=== PATIENT | female | born 1935 | race Caucasian/White ===

== ENCOUNTER → 2016-12-29 | Outpatient (CLI) | payer OTHER ==
[~2016-12-29] MED LIST: ASPI325T4 PO; ATEN25TA PO; CEFD300C37 PO; GLIM2TAB2 PO; LEVO75TA33 PO; LOSA1TAB18 PO; LOSA1TAB7 PO; LOVA10TA PO
== END | disposition home or self-care (01) ==
LOC: CVU 13:01
PROVIDERS: ATTEND Internal Medicine
DX: I50.32 Chronic diastolic (congestive) heart failure (principal); I35.1 Nonrheumatic aortic (valve) insufficiency; I51.7 Cardiomegaly
CPT/HCPCS: 93306

== ENCOUNTER 2017-02-12 12:54 | Inpatient (IN) | payer OTHER ==
[~2017-02-12] VITALS: Ht 170.2 cm; Wt 80.2 kg
[2017-02-12] MEDS ORDERED: SODIUM CHLORIDE 0.9% 1,000ML IVBOLUS ONE (14:00)
[2017-02-12] MEDS ORDERED: SODIUM CHLORIDE FLUSH 10ML SYR IVF ONE (14:00)
[2017-02-12 14:34] LABS: HEMATOCRIT 38.8 % (34.6-47.8); HEMOGLOBIN 12.8 g/dL (11.7-16.4); WHITE BLOOD COUNT 5.3 x10^3/uL (3.4-10)
[2017-02-12 14:43] LABS: BLOOD UREA NITROGEN 17 mg/dL (7-18)
[2017-02-12 14:50] LABS: IS PT STATUS REG ER OR PRE ER? YES
[2017-02-12 15:47] LABS: PATH.CAST-FLAG NOT PRESENT; SPERM-FLAG NOT PRESENT; SRC-FLAG NOT PRESENT; XTAL-FLAG NOT PRESENT; YLC-FLAG NOT PRESENT
[2017-02-12] MEDS ORDERED: CEFTRIAXONE PMX 1GM/50ML 50 ML IV ONE (17:00)
[2017-02-12] MEDS ORDERED: ACETAMINOPHEN 325 MG TABLET PO PRN (18:00)
[2017-02-12] MEDS ORDERED: morphine SULFATE 10 MG/ML, 1ML IVPush PRN (18:00)
[2017-02-12] MEDS ORDERED: ONDANSETRON 2MG/ML, 2ML IVPush PRN (18:00)
[2017-02-12] MEDS ORDERED: POLYETHYLENE GLYCOL 17 GM PACKET PO PRN (18:00)
[2017-02-12 20:00] VITALS: BP 126/73
[2017-02-12 20:01] VITALS: BP 126/73
[2017-02-12] MEDS ORDERED: CEFTRIAXONE PMX 1GM/50ML 50 ML ONE (20:47)
[2017-02-12] MEDS: GLIMEPIRIDE 1 MG TABLET PO SCH (22:41)
[2017-02-12] MEDS: LOVASTATIN 40 MG TABLET PO SCH (22:41)
[2017-02-12] MEDS: CEFTRIAXONE PMX 1GM/50ML 50 ML IV SCH (22:41)
[2017-02-12] MEDS: SODIUM CHLORIDE 0.9% 1,000 ML IV SCH (22:43)
[2017-02-13 01:44] VITALS: BP 131/74
[2017-02-13 06:23] LABS: HEMATOCRIT 36.5 % (34.6-47.8); HEMOGLOBIN 12.2 g/dL (11.7-16.4); WHITE BLOOD COUNT 6.2 x10^3/uL (3.4-10)
[2017-02-13 06:36] LABS: BLOOD UREA NITROGEN 20 mg/dL (7-18)
[2017-02-13 07:03] LABS: ASPARTATE AMINO TRANSFERASE 94 U/L (15-37); FERRITIN 43.5 ng/mL (8-252); TOTAL IRON BINDING CAPACITY 377 mcg/dL (250-450)
[2017-02-13 07:39] VITALS: BP 151/74
[2017-02-13] MEDS: SODIUM CHLORIDE 0.9% 1,000 ML IV SCH ×2 (09:34→20:40)
[2017-02-13] MEDS: GLIMEPIRIDE 1 MG TABLET PO SCH ×2 (09:34→20:34)
[2017-02-13] MEDS: ASPIRIN 325 MG TABLET PO SCH (09:34)
[2017-02-13] MEDS ORDERED: ERGOCALCIFEROL 50,000 UNIT CAPSULE PO SCH (10:00)
[2017-02-13] MEDS: LEVOTHYROXINE 25 MCG TABLET PO SCH (12:20)
[2017-02-13 12:57] VITALS: BP 136/79
[2017-02-13 18:41] VITALS: BP 152/81
[2017-02-13] MEDS: LOVASTATIN 40 MG TABLET PO SCH (20:34)
[2017-02-13] MEDS: CEFTRIAXONE PMX 1GM/50ML 50 ML IV SCH (22:54)
[2017-02-14 00:58] VITALS: BP 167/78
[2017-02-14] MEDS: hydrALAzine 20 MG/ML, 1ML IVPush PRN (02:03)
[2017-02-14 02:20] VITALS: BP 137/70
[2017-02-14] MEDS: LEVOTHYROXINE 25 MCG TABLET PO SCH (05:35)
[2017-02-14] MEDS: HYDROcodone/APAP 5/325 TABLET PO PRN ×2 (05:44→21:39)
[2017-02-14 05:59] LABS: BLOOD UREA NITROGEN 17 mg/dL (7-18)
[2017-02-14] MEDS ORDERED: LEVOTHYROXINE 25 MCG TABLET PO SCH (06:00)
[2017-02-14 08:15] VITALS: BP 128/71
[2017-02-14] MEDS: SODIUM CHLORIDE 0.9% 1,000 ML IV SCH ×2 (10:28→19:00)
[2017-02-14] MEDS: GLIMEPIRIDE 1 MG TABLET PO SCH ×2 (10:29→21:41)
[2017-02-14] MEDS: ASPIRIN 325 MG TABLET PO SCH (10:29)
[2017-02-14] MEDS ORDERED: ERGO500017 PO (11:06)
[2017-02-14] MEDS ORDERED: CEFD300C37 PO (11:06)
[2017-02-14] MEDS ORDERED: LEVO25TA2 PO (11:06)
[2017-02-14] MEDS ORDERED: FERR325T20 PO (11:18)
[2017-02-14] MEDS: POTASSIUM CHLORIDE 20 MEQ TAB.ER.PRT PO SCH ×2 (13:50→15:56)
[2017-02-14 15:45] VITALS: BP 149/66
[2017-02-14] MEDS ORDERED: PRIM50TA PO (17:47)
[2017-02-14 18:48] VITALS: BP 172/80
[2017-02-14 18:58] LABS: HEP B SURF. AB < 3.1 mIU/mL (0.0-10.0)
[2017-02-14 19:37] LABS: HEPATITIS A ANTIBODY TOTAL Reactive (Nonreactive)
[2017-02-14] MEDS ORDERED: POLYETHYLENE GLYCOL 17 GM PACKET PO PRN (20:00)
[2017-02-14] MEDS ORDERED: ONDANSETRON 2MG/ML, 2ML IVPush PRN (20:00)
[2017-02-14] MEDS ORDERED: morphine SULFATE 10 MG/ML, 1ML IVPush PRN (20:00)
[2017-02-14] MEDS ORDERED: PRIMIDONE 50 MG TABLET PO SCH (21:00)
[2017-02-14] MEDS: CEFTRIAXONE PMX 1GM/50ML 50 ML IV SCH (21:41)
[2017-02-14] MEDS: LOVASTATIN 40 MG TABLET PO SCH (21:42)
[2017-02-15 02:49] VITALS: BP 138/70
[2017-02-15] MEDS: LEVOTHYROXINE 25 MCG TABLET PO SCH (06:14)
[2017-02-15] MEDS: SODIUM CHLORIDE 0.9% 1,000 ML IV SCH (08:18)
[2017-02-15 08:19] VITALS: BP 179/76
[2017-02-15] MEDS: GLIMEPIRIDE 1 MG TABLET PO SCH (09:10)
[2017-02-15] MEDS: ASPIRIN 325 MG TABLET PO SCH (09:10)
[2017-02-15] MEDS: hydrALAzine 20 MG/ML, 1ML IVPush PRN (09:11)
== END 2017-02-15 13:30 | disposition home or self-care (01) | DRG 871 ==
LOC: ED 16:59 → EDIP 17:04 → SUATTDRO 17:38 → 4WST 19:36
PROVIDERS: ADMIT Internal Medicine; ATTEND Internal Medicine
DX: A41.9 Sepsis, unspecified organism (principal); G93.40 Encephalopathy, unspecified; N17.0 Acute kidney failure with tubular necrosis; M62.82 Rhabdomyolysis; B96.1 Klebsiella pneumoniae [K. pneumoniae] as the cause of diseases classified elsewhere; B96.20 Unspecified Escherichia coli [E. coli] as the cause of diseases classified elsewhere; D50.9 Iron deficiency anemia, unspecified; E03.9 Hypothyroidism, unspecified; E11.649 Type 2 diabetes mellitus with hypoglycemia without coma; E11.65 Type 2 diabetes mellitus with hyperglycemia; E55.9 Vitamin D deficiency, unspecified; E78.5 Hyperlipidemia, unspecified; F02.80 Dementia in other diseases classified elsewhere, unspecified severity, without behavioral disturbance, psychotic disturbance, mood disturbance, and anxiety; G25.0 Essential tremor; G31.83 Neurocognitive disorder with Lewy bodies; I11.0 Hypertensive heart disease with heart failure; I25.10 Atherosclerotic heart disease of native coronary artery without angina pectoris; I50.9 Heart failure, unspecified; K75.9 Inflammatory liver disease, unspecified; N30.90 Cystitis, unspecified without hematuria; W06.XXXA Fall from bed, initial encounter; Y93.89 Activity, other specified; Y92.89 Other specified places as the place of occurrence of the external cause; Z88.0 Allergy status to penicillin; Z79.4 Long term (current) use of insulin; Z90.49 Acquired absence of other specified parts of digestive tract; Z88.8 Allergy status to other drugs, medicaments and biological substances
CPT/HCPCS: 36415; 71010; 80048; 80053; 80061; 81001; 82040; 82306; 82550; 82553; 82607; 82728; 82746; 82962; 83036; 83540; 83550; 83605; 83735; 83970; 84100; 84132; 84443; 84484; 85025; 86705; 86706; 86708; 86803; 87040; 87077; 87086; 87186; 87340; 93005; J0696; J0360; J7030

== ENCOUNTER 2017-03-21 18:41 | Emergency (ER) | payer OTHER ==
[~2017-03-21] VITALS: Ht 165.1 cm; Wt 80.6 kg
[~2017-03-21 18:41] MED LIST changes: +ASPI325T17 PO; -ASPI325T4 PO; +ERGO500017 PO; +FERR325T18 PO; +LEVO25TA2 PO; -LEVO75TA33 PO; +LEVO75TA59 PO; +PRIM50TA PO
[2017-03-21] MEDS ORDERED: ERTAPENEM 1 GM in SODIUM CHLORIDE 0.9% 50 ML IV ONE (21:00)
[2017-03-21] MEDS ORDERED: VANCOMYCIN PMX 1GM/200ML 200 ML IV ONE (21:00)
[2017-03-21] MEDS ORDERED: SODIUM CHLORIDE FLUSH 10ML SYR IVF ONE (21:00)
[2017-03-22 00:16] VITALS: BP 124/75
== END 2017-03-22 00:49 | disposition home or self-care (01) ==
LOC: ED 23:50
DX: E11.621 Type 2 diabetes mellitus with foot ulcer (principal); I11.9 Hypertensive heart disease without heart failure; I51.9 Heart disease, unspecified
CPT/HCPCS: 87070; 87205; 96365; 96366; 96367; 99285; J1335; J3370

== ENCOUNTER 2017-04-28 17:57 | Inpatient (IN) | payer OTHER ==
[~2017-04-28] VITALS: Ht 167.6 cm; Wt 79.8 kg
[~2017-04-28 17:57] MED LIST changes: -LOSA1TAB18 PO; +LOSA1TAB25 PO
[2017-04-28 20:45] VITALS: BP 150/67
[2017-04-28] MEDS ORDERED: ONDANSETRON 2MG/ML, 2ML IVPush PRN (21:00)
[2017-04-28] MEDS ORDERED: DEXTROSE 4 GM TAB.CHEW PO PRN (21:00)
[2017-04-28] MEDS ORDERED: hydrALAzine 20 MG/ML, 1ML IVPush PRN (21:00)
[2017-04-28] MEDS ORDERED: LORazepam 2 MG/ML, 1ML IVPush PRN (21:00)
[2017-04-28] MEDS ORDERED: INSULIN ASPART 100 UNITS/ML, PEN SQ-INSULIN SCH (21:00)
[2017-04-28] MEDS ORDERED: GLUCAGON 1 MG IM PRN (21:00)
[2017-04-28] MEDS ORDERED: GLIMEPIRIDE 1 MG TABLET PO SCH (21:00)
[2017-04-28] MEDS ORDERED: DEXTROSE 50%, 50ML SYRINGE IVPush PRN (21:00)
[2017-04-28] MEDS ORDERED: HYDROmorphone 2 MG/ML, 1ML IVPush PRN (21:00)
[2017-04-28] MEDS ORDERED: ERGOCALCIFEROL 50,000 UNIT CAPSULE PO SCH (21:19)
[2017-04-28] MEDS ORDERED: PLEASE ENTER HEIGHT AND WEIGHT MC SCH (21:30)
[2017-04-28 22:00] VITALS: BP 150/65
[2017-04-28] MEDS: INSULIN ASPART 100 UNITS/ML, PEN SQ-INSULIN SCH (22:32)
[2017-04-28] MEDS: FERROUS SULFATE 325 MG TABLET PO SCH (22:32)
[2017-04-28] MEDS: ENOXAPARIN 40 MG/0.4 ML SQ SCH (22:32)
[2017-04-28] MEDS: SODIUM CHLORIDE FLUSH 10ML SYR IVF SCH ×2 (22:35→22:36)
[2017-04-29 01:25] VITALS: BP 123/58
[2017-04-29] MEDS: LEVOTHYROXINE 25 MCG TABLET PO SCH (05:52)
[2017-04-29 06:52] VITALS: BP 122/69
[2017-04-29] MEDS: INSULIN ASPART 100 UNITS/ML, PEN SQ-INSULIN SCH ×7 (08:22→20:43)
[2017-04-29] MEDS: HYDROCHLOROTHIAZIDE 12.5 MG CAPSULE PO SCH (09:01)
[2017-04-29] MEDS: PANTOPRAZOLE 40 MG IV IVPush SCH (09:01)
[2017-04-29] MEDS: ASPIRIN 325 MG TABLET PO SCH (09:02)
[2017-04-29] MEDS: FERROUS SULFATE 325 MG TABLET PO SCH ×2 (09:02→20:40)
[2017-04-29] MEDS: LOSARTAN 50MG TABLET PO SCH (09:02)
[2017-04-29] MEDS: GLIMEPIRIDE 1 MG TABLET PO SCH ×2 (09:02→17:26)
[2017-04-29] MEDS: PRIMIDONE 50 MG TABLET PO SCH (09:03)
[2017-04-29] MEDS: SODIUM CHLORIDE FLUSH 10ML SYR IVF SCH ×4 (09:07→20:42)
[2017-04-29] MEDS: CEFTRIAXONE PMX 1GM/50ML 50 ML IV SCH (10:07)
[2017-04-29 10:08] LABS: BLOOD UREA NITROGEN 21 mg/dL (7-18)
[2017-04-29 10:15] LABS: HEMATOCRIT 36.2 % (34.6-47.8); HEMOGLOBIN 12.2 g/dL (11.7-16.4); WHITE BLOOD COUNT 4.7 x10^3/uL (3.4-10)
[2017-04-29 12:37] VITALS: BP 120/73
[2017-04-29] MEDS: POTASSIUM CHLORIDE 20 MEQ TAB.ER.PRT PO SCH (17:26)
[2017-04-29] MEDS: ENOXAPARIN 40 MG/0.4 ML SQ SCH (20:40)
[2017-04-29 20:49] VITALS: BP 172/80
[2017-04-30 00:57] VITALS: BP 177/65
[2017-04-30] MEDS: ACETAMINOPHEN 325 MG TABLET PO PRN ×2 (01:45→21:07)
[2017-04-30 06:03] LABS: HEMATOCRIT 34.8 % (34.6-47.8); HEMOGLOBIN 11.9 g/dL (11.7-16.4); WHITE BLOOD COUNT 4.9 x10^3/uL (3.4-10)
[2017-04-30 06:17] LABS: BLOOD UREA NITROGEN 16 mg/dL (7-18)
[2017-04-30 07:34] VITALS: BP 116/69
[2017-04-30] MEDS: GLIMEPIRIDE 1 MG TABLET PO SCH ×2 (08:51→17:19)
[2017-04-30] MEDS: LOSARTAN 50MG TABLET PO SCH (08:52)
[2017-04-30] MEDS: POTASSIUM CHLORIDE 20 MEQ TAB.ER.PRT PO SCH ×3 (08:52→17:18)
[2017-04-30] MEDS: FERROUS SULFATE 325 MG TABLET PO SCH ×2 (08:53→21:07)
[2017-04-30] MEDS: HYDROCHLOROTHIAZIDE 12.5 MG CAPSULE PO SCH (08:54)
[2017-04-30] MEDS: ASPIRIN 325 MG TABLET PO SCH (08:55)
[2017-04-30] MEDS: PRIMIDONE 50 MG TABLET PO SCH (08:55)
[2017-04-30] MEDS: LEVOTHYROXINE 25 MCG TABLET PO SCH (08:56)
[2017-04-30] MEDS: INSULIN ASPART 100 UNITS/ML, PEN SQ-INSULIN SCH ×5 (08:57→21:08)
[2017-04-30] MEDS: PANTOPRAZOLE 40 MG IV IVPush SCH (08:57)
[2017-04-30] MEDS: CEFTRIAXONE PMX 1GM/50ML 50 ML IV SCH (10:15)
[2017-04-30] MEDS: SODIUM CHLORIDE FLUSH 10ML SYR IVF SCH ×4 (10:15→21:07)
[2017-04-30] MEDS ORDERED: MAGNESIUM SULFATE PMX 2GM/50ML 50 ML IV ONE (11:30)
[2017-04-30 14:14] VITALS: BP 143/53
[2017-04-30 18:27] VITALS: BP 147/77
[2017-04-30] MEDS: ENOXAPARIN 40 MG/0.4 ML SQ SCH (21:06)
[2017-05-01 00:31] VITALS: BP 150/70
[2017-05-01 06:03] LABS: BLOOD UREA NITROGEN 18 mg/dL (7-18)
[2017-05-01] MEDS: LEVOTHYROXINE 25 MCG TABLET PO SCH (06:27)
[2017-05-01 08:16] VITALS: BP 176/64
[2017-05-01] MEDS: SODIUM CHLORIDE FLUSH 10ML SYR IVF SCH ×2 (08:18→08:20)
[2017-05-01] MEDS: INSULIN ASPART 100 UNITS/ML, PEN SQ-INSULIN SCH ×2 (08:18→12:58)
[2017-05-01] MEDS: GLIMEPIRIDE 1 MG TABLET PO SCH (08:19)
[2017-05-01] MEDS: PANTOPRAZOLE 40 MG IV IVPush SCH (08:19)
[2017-05-01] MEDS: HYDROCHLOROTHIAZIDE 12.5 MG CAPSULE PO SCH (08:20)
[2017-05-01] MEDS: LOSARTAN 50MG TABLET PO SCH (08:20)
[2017-05-01] MEDS: FERROUS SULFATE 325 MG TABLET PO SCH (08:20)
[2017-05-01] MEDS: PRIMIDONE 50 MG TABLET PO SCH (08:20)
[2017-05-01] MEDS: ASPIRIN 325 MG TABLET PO SCH (08:31)
[2017-05-01] MEDS ORDERED: AMLO2.5T PO (12:15)
[2017-05-01] MEDS ORDERED: AMLODIPINE 2.5 MG TABLET PO SCH (12:30)
[2017-05-01 15:30] VITALS: BP 165/91
[2017-05-01] MEDS ORDERED: NEUTRA PHOS K 250 MG TABLET PO SCH (21:00)
== END 2017-05-01 16:06 | disposition home or self-care (01) | DRG 56 ==
LOC: 3NE 20:45
PROVIDERS: ADMIT Internal Medicine; ATTEND Internal Medicine
PROC: 0T9B70Z Drainage of Bladder with Drainage Device, Via Natural or Artificial Opening (ICD-10-PCS; principal; 2017-04-29)
DX: G30.9 Alzheimer's disease, unspecified (principal); L89.614 Pressure ulcer of right heel, stage 4; D69.6 Thrombocytopenia, unspecified; E11.21 Type 2 diabetes mellitus with diabetic nephropathy; E11.22 Type 2 diabetes mellitus with diabetic chronic kidney disease; E83.39 Other disorders of phosphorus metabolism; E88.81 Metabolic syndrome and other insulin resistance; F02.80 Dementia in other diseases classified elsewhere, unspecified severity, without behavioral disturbance, psychotic disturbance, mood disturbance, and anxiety; L89.629 Pressure ulcer of left heel, unspecified stage; I12.9 Hypertensive chronic kidney disease with stage 1 through stage 4 chronic kidney disease, or unspecified chronic kidney disease; N18.9 Chronic kidney disease, unspecified; Z88.0 Allergy status to penicillin; Z88.8 Allergy status to other drugs, medicaments and biological substances; E03.9 Hypothyroidism, unspecified; E66.9 Obesity, unspecified; E78.5 Hyperlipidemia, unspecified; E83.42 Hypomagnesemia; E87.6 Hypokalemia; I13.10 Hypertensive heart and chronic kidney disease without heart failure, with stage 1 through stage 4 chronic kidney disease, or unspecified chronic kidney disease; R13.11 Dysphagia, oral phase; Z66 Do not resuscitate; Z68.28 Body mass index [BMI] 28.0-28.9, adult
CPT/HCPCS: 36415; 80048; 81001; 82962; 83036; 83735; 84100; 84439; 84443; 85025; 87086; 87324; J0696; J1170; J1650; J1815; 92523-GN; C9113; J0360; J3475